=== PATIENT | female | born 1985 | race American Indian/Alaskan Native ===

== ENCOUNTER 2017-04-20 06:48 | Inpatient (IN) | payer MEDICAID ==
[~2017-04-20 06:48] MED LIST: Acetaminophen 325 MG Tab PO PRN; Acetaminophen/oxyCODONE 325-5 MG Tab PO PRN; Carboprost Tromethamine 250 MCG/1 ML Amp IM ONE; Citric Acid/Sodium Citrate Solution 30 ML Cup PO ONE; Methylergonovine 0.2 MG/1 ML Amp IM PRN; Misoprostol 400 MCG (4 X 100 MCG TAB) RECTAL PRN; Naloxone 2 MG/2 ML Syringe IVPUSH PRN; Ondansetron 4 MG/2 ML SDV IV PRN; Oxytocin/Normal Saline 60 UNIT/1,000 ML BAG ONE; ceFAZolin 2 GM in Premix Bag 1 BAG IV ONE; diphenhydrAMINE 50 MG/ML SDV IVPUSH PRN; ePHEDrine 50 MG/ML SDV IVPUSH PRN
--- NOTE | 2017-04-20 07:28 | PCM.PREANE ---
Preanesthetic Assessment - Procedure Proposed Procedure: Repeat Section - Anesthesia/Transfusion/Family Hx Anesthesia History: Prior Anesthesia Without Reaction Family History of Anesthesia Reaction: No Transfusion History: No Prior Transfusion(s) Intubation History: Unknown - Review of Systems General: No Symptoms Pulmonary: No Symptoms Cardiovascular: No Symptoms Gastrointestinal: No symptoms Neurological: No Symptoms Other: Reports: None - Physical Assessment NPO Status Date: 04/19/17 NPO Status Time: 23:00 Pulse: 88 O2 Sat by Pulse Oximetry: 99 Respiratory Rate: 18 Blood Pressure: 121/72 Temperature: 97.6 F Height: 1.55 m Weight: 90.718 kg ASA Class: 2 Mental Status: Alert & Oriented x3 Airway Class: Mallampati = 2 Dentition: Reports: Normal Dentition Thyro-Mental Finger Breadths: 3 Mouth Opening Finger Breadths: 3 ROM/Head Extension: Full Lungs: Clear to auscultation, Normal respiratory effort Cardiovascular: Regular Rate, Regular Rhythm - Lab Values: Laboratory Last Values POC Glucose 101 mg/dl (70-105) 04/20/17 07:06 - Allergies Allergies/Adverse Reactions: Allergies Allergy/AdvReac Type Severity Reaction Status Date / Time No Known Drug Allergies Allergy none Verified 04/20/17 07:05 metal Allergy Rash Uncoded 12/31/14 19:23 - Blood Blood Available: No Product(s) Available: None - Anesthesia Plan Pre-Op Medication Ordered: None - Acknowledgements Anesthesia Type Planned: Spinal Pt an Appropriate Candidate for the Planned Anesthesia: Yes Alternatives and Risks of Anesthesia Discussed w Pt/Guardian: Yes Pt/Guardian Understands and Agrees with Anesthesia Plan: Yes Additional Comments: Patient ID'd chart reviewed, R/B of spinal and general anesthesia discussed with patient. Consent is signed. Plan A is spinal anesthesia and Plan B is general anesthesia. Patient agreed. 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: , Spontaneous - Past Surgical History Female Surgical History: Reports: Section, D&C - SUBSTANCE USE Smoking Status *Q: Never Smoker Tobacco Use Within Last Twelve Months: No Second Hand Smoke Exposure: Yes Days Per Week of Alcohol Use: 2 Number of Drinks Per Day: 4 Total Drinks Per Week: 8 Recreational Drug Use History: No - HOME MEDS Home Medications: Home Meds Vit 90/Iron Fum/Folic [ Formula] 1 each PO DAILY 02/04/15 [ History] - CURRENT (IN HOUSE) MEDS Current Meds: Current Medications Acetaminophen (Tylenol) 650 mg PO Q6H PRN PRN Reason: mild pain or fever Carboprost Tromethamine (Hemabate Ds) 250 mcg IM ONETIME ONE Stop: 04/20/17 06:00 Citric Acid/Sodium Citrate (Bicitra Solution) 30 ml PO ONETIME ONE Stop: 04/20/17 06:00 Diphenhydramine HCl (Benadryl) 25 mg IVPUSH Q6H PRN PRN Reason: Itching or Nausea Docusate Sodium (Colace) 100 mg PO Q12H PRN PRN Reason: Constipation Ephedrine Sulfate (Ephedrine Sulfate) 5 mg IVPUSH SEECOMMENT PRN PRN Reason: Other Ferrous Sulfate (Ferrous Sulfate) 325 mg PO BRK DARLENE Cefazolin Sodium/Dextrose 2 gm (/ Premix) 50 mls @ 100 mls/hr IV ONETIME ONE Stop: 04/20/17 06:28 Lactated Ringer's (Ringers, Lactated) 1,000 mls @ 125 mls/hr IV ASDIRECTED [facility] Ibuprofen (Motrin) 800 mg PO Q8H PRN PRN Reason: mild pain or fever Ketorolac Tromethamine (Toradol) 15 mg IVPUSH Q6H [facility] Stop: 04/20/17 18:01 Methylergonovine Maleate (Methergine) 0.2 mg IM ONETIME PRN PRN Reason: Excessive Vaginal Bleeding Misoprostol (Cytotec) 800 mcg RECTAL ASDIRECTED PRN PRN Reason: Bleeding Naloxone HCl (Narcan) 0.1 mg IVPUSH SEECOMMENT PRN PRN Reason: Respiratory Depression Ondansetron HCl (Zofran) 4 mg IV Q4H PRN PRN Reason: Nausea/Vomiting Oxycodone/Acetaminophen (Percocet 325-5 Mg) 1 tab PO Q4H PRN PRN Reason: Pain (moderate 4-6) Oxycodone/Acetaminophen (Percocet 325-5 Mg) 2 tab PO Q4H PRN PRN Reason: Pain (moderate 4-6) Prenat Multivit/[place]/Iron/Folic Ac ( Plus Iron) 1 each PO DAILY [facility] Simethicone (Simethicone) 80 mg PO Q4H PRN PRN Reason: Gas Discontinued Medications Oxytocin/Sodium Chloride (Pitocin In Ns 30 Unit/500 Ml) Confirm Administered Dose 60 unit in 1,000 mls @ as directed .ROUTE .STK-MED ONE Stop: 04/20/17 05:49
[2017-04-20] MEDS ORDERED: Oxytocin/Normal Saline 30 UNIT/500 ML BAG IV SCH (08:50)
[2017-04-20] MEDS: Lactated Ringers 1,000 ML IV SCH ×4 (09:31→19:21)
[2017-04-20] MEDS ORDERED: Morphine 10 MG/ML Syringe IVPUSH PRN (10:10)
[2017-04-20] MEDS ORDERED: Oxytocin/Normal Saline 30 UNIT/500 ML BAG IV ONE (12:31)
--- NOTE | 2017-04-20 13:31 | HP ---
PATIENT IDENTIFICATION: María Miller is a 32-year-old G9, P6-0-2-6, intrauterine at 38 weeks, confirmed with 26 and /7th week ultrasound, gestational diabetes mellitus, poorly controlled, previous x2, requests repeat low transverse with poor care, who presents for repeat low transverse . HISTORY OF PRESENT ILLNESS: The patient has been followed during this . Diagnosed with gestational diabetes mellitus late in the because she failed to follow as instructed. She was followed for short period of time, was uncontrolled, and deferred medication. There were issues with noncompliance and patient presenting appropriately for care. Subsequently, shared decision was made and discussed with Dr. Pal to proceed with repeat low transverse at 38 weeks. The patient presents today. She states her last oral intake was at 11:00 p.m. night before surgery. She otherwise has no complaints currently. She has occasional contractions. Records were called for, reviewed as below and supplemented by patient history. OB HISTORY: 1. Spontaneous AB in 03/2016 at 8 weeks without a D and C. 2. 07/30/2015, 39 weeks, low transverse , female weighing 3640 g. 3. 03/10/2014, 40 and 1/7 weeks, delivered male, primary low transverse C- section with 2-layer uterine closure, weighing 3925 g, due to intolerance. 4. 2008, 40 weeks spontaneous vaginal delivery of female 3799 g. 5. 03/2008, 6 weeks spontaneous AB with a D and C. 6. 2006, 40 weeks, female, spontaneous vaginal delivery, weighing 4564 g. 7. 2005, 40 week, male, delivered via spontaneous vaginal delivery, weighing 3799 g. 8. 2003, 42 week, vacuum assisted vaginal delivery, yielding a male weighing 4423 g. ANTEPARTUM LABS: ABO blood type O positive, negative antibody. Rubella immune. RPR is nonreactive. Negative hepatitis B surface antigen, hep C, HIV, GC, and Chlamydia. One-hour GTT was elevated significantly at 210. GBS was negative on 04/02/2017. ALLERGIES: No known drug allergies. MEDICATIONS: vitamins. PAST MEDICAL/PAST SURGICAL HISTORY: Remarkable for history of depression, alcohol and drug abuse with overuse of drugs in the past, history of STD in the past, history of abnormal Pap smears requiring a LEEP, seizures with last one in 2008, no meds needed. She has gestational diabetes mellitus, not controlled at current time. Past surgical history includes LEEP on 03/07/2010 and previous x2 as above. FAMILY HISTORY: Depression in 3 brothers, which committed suicide, multiple births in paternal grandmother. Negative family history of defects, anesthesia problems, bleeding problems, thyroid disease, seizures. SOCIAL HISTORY: Lives in [place] with her boyfriend, not working currently, has 3 children with her. No alcohol or drug use. Former smoker. REVIEW OF SYSTEMS: Otherwise reviewed and felt to be noncontributory. OBJECTIVE: Vital Signs: Blood pressure 120/62, heart rate 69, temperature 97.5, and O2 sats 97%. Appearance: Female, appears her stated age, acting appropriate for age, nontoxic in appearance. HEENT: Head is atraumatic. EOMs intact. PERRLA. No scleral icterus. No obvious otorhinorrhea. Mucous members moist. Neck: No obvious tenderness. Lungs: Clear to auscultation bilaterally. No increased work of breathing. Heart: S1, S2. Regular rate and rhythm. Abdomen: Gravid Tyrone's indeterminate, nontender, and nondistended. Bowel sounds are positive. No organomegaly, pulsatile masses, or obvious hernias. No rebound, rigidity, or guarding with Pfannenstiel type scar noted. : Deferred. Extremities: Trace pedal edema. Deep tendon reflexes 1-2/4 in bilaterally in lower extremities. Psych: Mood and affect are congruent. Judgment and insight are intact. Skin: No cyanosis, clubbing, or jaundice. Tocometer reveals occasional contractions. heart tones in the 135 range. Davis to be reassuring. ASSESSMENT/PLAN: 1. Intrauterine at 38 weeks, confirmed with 26 and 2/7th week ultrasound. 2. Gestational diabetes mellitus - poorly controlled with issues with compliance. 3. Previous x2, requests repeat low transverse . 4. Poor care with issues with compliance. 5. Group B Streptococcus negative. 6. G9, P6-0-2-6. PLAN: I did discuss with the patient proceeding with repeat low transverse C- section. I did discuss with her and her male partner risks, benefits, alternatives, complications of including, but no limited to, infection, bleeding, damage to organs such as bowel, bladder, tubes, uterus, ovaries, sometimes fetus rarely needing a blood transfusion or further surgery, and even rarer maternal or . She understands and agrees and wishes to proceed. Verbal and written consent obtained. Questions were answered. We will proceed to the OR as soon as crew is ready and available. [facility] /[id number]
[2017-04-20] MEDS: Morphine 2 MG/ML Syringe IVPUSH PRN ×3 (14:52→23:11)
--- NOTE | 2017-04-20 15:10 | OR ---
DATE: 04/20/2017 PREOPERATIVE DIAGNOSES: 1. Intrauterine at 38 weeks, confirmed by 26-2/ weeks ultrasound. 2. Gestational diabetes mellitus - poorly controlled. 3. Previous x2, requests repeat low transverse . 4. Poor/insufficient care with noncompliance. 5. Group B Streptococcus negative. 6. G 9, P 6-0-2-6. 7. Anemia of with hemoglobin 10.1 upon admission. POSTOPERATIVE DIAGNOSES: 1. Intrauterine at 38 weeks, confirmed by 26-27th weeks ultrasound-delivered. 2. Gestational diabetes mellitus - poorly controlled. 3. Previous x2, requests repeat low transverse . 4. Poor/insufficient care with noncompliance. 5. Group B Streptococcus negative. 6. G 9, P 6-0-2-6. 7. hemorrhage with EBL of 1200 mL. 8. Difficulty delivering vertex, requiring Kiwi vacuum assistance. FINDINGS: Male, scores, and weight pending. PROCEDURE PERFORMED: Repeat low transverse with Kiwi vaccuum assistance. SCHOOL SECRETARY: Arina East MD ANESTHESIA: Spinal. EBL: 1200mL IV FLUIDS: 1500 mL. URINE OUTPUT: 150 mL and clear. START: 0814. UTERINE INCISION: 0816. DELIVERY: 0816. STOP TIME: See STEAK TENDERIZER MACHINE's notes. DESCRIPTION OF PROCEDURE IN DETAIL: After proper consent was obtained, the patient was brought to the operating room where spinal anesthetic was administered. A Canales was placed in preop under sterile conditions. Abdomen was prepped and draped in normal sterile fashion, and the patient was placed in supine position with left lateral tilt with reverse Trendelenburg per STEAK TENDERIZER MACHINE. A skin incision was then made over lower abdomen in transverse Pfannenstiel-type fashion over previous scar. This was carried down to the fascia and scored in the midline. Subcutaneous tissue was raked laterally with Herron retractor and fascial incision was extended in transverse fashion using curved Goodson's. Lisy clamps x2 used to grasp superior aspect of the fascia and rectus muscles were dissected from the fascia using sharp and blunt technique. In a similar fashion, Lisy clamps x2 were used to grasp the inferior portion of incision and rectus and pyramidalis muscles dissected from fascia using sharp and blunt technique. Rectus muscles were in the midline with blunt technique. Abdominal cavity was entered in blunt technique and incision was extended superiorly and inferiorly using blunt technique. Walker O large retractor was then introduced and used. Vesicouterine peritoneum was then identified, incised in transverse fashion using Metzenbaum scissors and bladder flap was made digitally. A curvilinear incision was made in lower uterine segment at 0816 hours. Uterus was entered sharply. Clear fluid returned. Uterine incision was then extended in transverse fashion using blunt technique. vertex was then attempted to be delivered through the incision, had some difficulty delivering through the incision. Kiwi vacuum was applied, pumped up to the green with gentle pulling and fundal pressure. vertex was delivered. Vacuum was disengaged. Rest of the delivered thereafter without difficulty. Mouth and nares were suctioned. Cord doubly clamped and cut, was brought over to team. Then, approximately 10 mL cord blood was obtained for labs. Placenta then delivered with gentle cord traction and fundal massage. Uterine cavity was cleared of all blood clots and debris with lap sponge. Breen clamps were used to grasp the uterine incision, this was closed in a running locked fashion, tied at lateral margins with 1-0 Vicryl. Left lateral portion of the incision revealed bleeding. Three [id number] stitches were applied. Hemostasis reassured. First inspection of the uterine incision revealed hemostasis. Walker O retractor was then removed and paracolic gutters were cleared of all blood clots and debris with lap sponge. Anterior cul-de-sac was then irrigated copiously and all blood clots removed. Second and final inspection of the uterine incision and anterior cul-de-sac revealed hemostasis. Rectus muscles were then reapproximated in midline with [id number]-[id number] stitch using 1-0 Vicryl. Subfascial tissue was found to be hemostatic. Fascia was closed in a running fashion, tied at lateral margin with 0 looped PDS. Subcutaneous tissue was irrigated copiously. Hemostasis was reassured. Skin was reapproximated with sterile medium daja. Aquacel dressing was applied. Uterus fundus was firm and massaged at the conclusion of the case and -2 below umbilicus. No immediate complications were noted. Sponge, lap, and needle counts correct. The patient received 2 g of Ancef preoperatively. Pitocin per protocol and will receive Toradol at the conclusion of case for pain control. Mother and infant are currently stable at the time of my dictation. Infant did require some resuscitation. Please see baby's notes for further details. [facility] /[id number] MTDD
--- NOTE | 2017-04-20 15:27 | PCM.POSTAN ---
POST ANESTHESIA ASSESSMENT - MENTAL STATUS Mental Status: alert, oriented - VITAL SIGNS Pulse Rate: 80 SaO2: 100 Resp Rate: 19 Blood Pressure: 128/62 Temperature: 97.1 F - RESPIRATORY Respiratory Status: respiratory rate WNL, airway patent, O2 saturation stable - CARDIOVASCULAR CV Status: pulse rate WNL, blood pressure stable - GASTROINTESTINAL GI Status: no symptoms - POST OP HYDRATION Hydration Status: adequate & stable (Sitting in bed tolerated procedure well. Trying to eat. Regained full function of her lower extremities. Did not ambulate yet. Epigastric pain is well controlled with morphine PRN. )
[2017-04-20] MEDS ORDERED: Morphine PF 5 MG/10 ML SDV ONE (16:08)
[2017-04-20] MEDS ORDERED: Midazolam 1 MG/ML 2 ML SDV IV ONE (16:08)
[2017-04-20] MEDS ORDERED: ePHEDrine 50 MG/ML SDV IV ONE (16:08)
[2017-04-20] MEDS ORDERED: fentaNYL 100 MCG/2 ML SDV ONE (16:08)
[2017-04-20] MEDS ORDERED: Ondansetron 4 MG/2 ML SDV IV ONE (16:08)
[2017-04-20] MEDS: Prenatal Multivitamin with Calcium/Folic Acid/Iron Tab PO SCH (17:20)
[2017-04-20] MEDS: Ferrous Sulfate 325 MG Tab PO SCH (17:35)
[2017-04-20] MEDS: Ketorolac 30 MG/ML SDV IVPUSH SCH ×2 (18:20→18:21)
[2017-04-20] MEDS: Simethicone 80 MG Tab.Chew PO PRN (23:12)
[2017-04-21] MEDS: Morphine 2 MG/ML Syringe IVPUSH PRN (03:01)
[2017-04-21] MEDS: Lactated Ringers 1,000 ML IV SCH (03:12)
[2017-04-21] MEDS: Acetaminophen/oxyCODONE 325-5 MG Tab PO PRN ×5 (06:37→23:28)
[2017-04-21] MEDS: Ibuprofen 800 MG Tab PO PRN ×2 (09:29→19:36)
[2017-04-21] MEDS: Simethicone 80 MG Tab.Chew PO PRN ×2 (09:30→19:36)
[2017-04-21] MEDS: Docusate Sodium 100 MG Cap PO PRN ×2 (09:30→19:36)
[2017-04-21] MEDS: Prenatal Multivitamin with Calcium/Folic Acid/Iron Tab PO SCH (09:30)
[2017-04-21] MEDS: Ferrous Sulfate 325 MG Tab PO SCH (09:30)
--- NOTE | 2017-04-21 11:46 | PN ---
DATE: 04/21/2017 Postoperative day #1. SUBJECTIVE: The patient is tolerating POs, has ambulated. Canales is in place. Passing flatus. She updated me in regard to her baby who sounds to be intubated, had surfactant, and required fentanyl as well as sugars through the IV to bring sugars back up. OBJECTIVE: Vital Signs: Last set of vitals updated and listed in the chart; temperature 98, heart rate 75, blood pressure 108/62, and respiratory rate 16. I's and O's are adequate. Lungs: Clear to auscultation bilaterally. Heart: S1 and S2. Regular rate and rhythm. Abdomen: Firm uterus at -1 below umbilicus. Aquacel dressing appears dry and intact. Extremities: SCD hoses are on. No calf pain. LABORATORY DATA: Pending is a CBC. ASSESSMENT AND PLAN: 1. Postoperative day #1, status post repeat low transverse section complicated by hemorrhage with estimated blood loss of 1200 mL. CBC is pending. The patient is currently asymptomatic. Vital signs are stable. I's and O's have been adequate. We will follow closely. Her predelivery hemoglobin was 10.1. 2. History of gestational diabetes mellitus, poorly controlled and issues with compliance. The patient appears to be stable in regard to this. We will follow clinically and closely. Possible discharge tomorrow. Discussed with the patient so that she can be with her baby if she does well today. She understands and agrees with the above treatment plan. [facility] /[id number]
--- NOTE | 2017-04-21 13:48 | OBOUT ---
DATE: 04/20/2017 DATE AND TIME OF NST: Date: 04/20/2017. Time: 6:54 to 7:14. REASON FOR NST: 1. Intrauterine at 38 weeks, confirmed with 26 -2/7th-week ultrasound. 2. Gestational diabetes mellitus, poorly controlled. 3. Previous x2, requests for repeat low transverse . 4. Poor care with issues with noncompliance. 5. Group B Streptococcus negative. 6. G9, P6-0-2-6. NST INTERPRETATION: During this time period, heart tone baseline is approximately around 135 range, and there are at least two 15 x 15 beat per minute accelerations, making this strip reactive. It is also noted to be reassuring. Tocometer reveals potential of 3 contractions, minimally felt by patient. ASSESSMENT: 1. NST-reactive and reassuring. 2. Tocometer with contractions. PLAN: Please see H and P for further details. [facility] /[id number]
[2017-04-22] MEDS: Ibuprofen 800 MG Tab PO PRN (03:29)
[2017-04-22] MEDS: Simethicone 80 MG Tab.Chew PO PRN (03:33)
[2017-04-22] MEDS: Acetaminophen/oxyCODONE 325-5 MG Tab PO PRN ×2 (03:33→08:11)
[2017-04-22] MEDS: Prenatal Multivitamin with Calcium/Folic Acid/Iron Tab PO SCH (08:11)
[2017-04-22] MEDS: Docusate Sodium 100 MG Cap PO PRN (08:11)
[2017-04-22] MEDS: Ferrous Sulfate 325 MG Tab PO SCH (08:11)
[2017-04-22 11:44] VITALS: BP 108/55
--- NOTE | 2017-04-22 12:54 | DISCH ---
ADMIT DIAGNOSES: 1. Intrauterine at 38 weeks, confirmed by 26-2/7th weeks ultrasound. 2. Gestational diabetes mellitus-poorly controlled. 3. Noncompliance. 4. Previous x2, requests repeat low transverse . 5. Poor care. 6. Group B Streptococcus negative. 7. G9, P6-0-2-6. 8. Anemia of with hemoglobin 10.1 upon admission. DISCHARGE DIAGNOSES: 1. Intrauterine at 38 weeks, confirmed by 26-2/7th weeks ultrasound- delivered. 2. Gestational diabetes mellitus-poorly controlled. 3. Noncompliance. 4. Previous x2, requests repeat low transverse . 5. Poor care. 6. Group B Streptococcus negative. 7. G9, P6-0-2-6. 8. Anemia of with hemoglobin 10.1 upon admission. 9. hemorrhage with an EBL of 1200 mL. 10.Difficulty delivering vertex, requiring kiwi vacuum assistance. PROCEDURE PERFORMED: NST followed by repeat low transverse with kiwi vacuum assistance per Dr. Benz. HISTORY OF PRESENT ILLNESS: Please see HPI. SUMMARY OF HOSPITAL COURSE: The patient was admitted on the above date with the above diagnoses, underwent a repeat low transverse under spinal, yielding a male with scores of 5, 4, and 9. Weighing 7 pounds 5 ounces (3310 g). had apnea, bradycardia, hypoxia, hypoglycemia and required transfer to the NICU. Postoperative day #1, please see progress note. Postoperative day #2, date of discharge, the patient was tolerating p.o., ambulating, urinating, passing flatus, requesting discharge. PHYSICAL EXAMINATION: Vital Signs: Last set of vitals updated and listed in the chart. Temperature 97.2, heart rate 70, blood pressure 103/50, respiratory rate 16. Lungs: Clear to auscultation bilaterally. Heart: S1 and S2. Regular rate and rhythm. Abdomen: Firm uterus around the umbilicus. Aquacel dressing appears dry and intact. JORDON hose are on. LABORATORY DATA: Discharge labs reveal white cell count 11.2, hemoglobin 9.2, platelets 307,000. CONDITION ON DISCHARGE COMPARED TO CONDITION ON ADMISSION: Improved. DISCHARGE INSTRUCTIONS: 1. Diet as tolerated. 2. Activity, no lifting more than 20 pounds. No sit-ups, straining amd pelvic rest for the next 6 weeks with immediate return to fertility discussed with the patient. 3. Reasons to return or go to the emergency room were discussed with the patient in detail including, but not limited to, temperature greater than 100.4, foul-smelling discharge, red, hot tender breasts, or increased vaginal bleeding or increasing pain, drainage, or redness around the incision. DISCHARGE MEDICATIONS: 1. [id number] Tylenol and ibuprofen for pain. 2. Iron sulfate 325 b.i.d. x6 weeks. 3. Percocet 5/325, one to two q.6 hours p.r.n., #30, no refills. Discussed the use of this medications, adverse and wanted effects, as well precautions with driving. FOLLOW UP: Next week on Thursday with the resident or Dr. Pal for staple removal. I did discuss the importance of followup and ramifications of not doing so. The patient understands and agrees with the above treatment plan. Please see discharge paperwork for further details as well. [facility] /[id number]
== END 2017-04-22 09:00 | disposition home or self-care (01) | DRG 765 ==
LOC: DL.OB 06:48 → OBSVTOIN 08:16 → DL.MS 23:50
PROVIDERS: ADMIT Family Medicine; ATTEND Family Medicine
PROC: 10D00Z1 Extraction of Products of Conception, Low, Open Approach (ICD-10-PCS; principal; 2017-04-20)
DX: O34.211 Maternal care for low transverse scar from previous cesarean delivery (principal); O72.1 Other immediate postpartum hemorrhage; O24.429 Gestational diabetes mellitus in childbirth, unspecified control; O99.02 Anemia complicating childbirth; D64.9 Anemia, unspecified; Z37.0 Single live birth; Z3A.38 38 weeks gestation of pregnancy; Z86.59 Personal history of other mental and behavioral disorders
CPT/HCPCS: 36415; 80305; 82962; 85027; 86850; 86900; 86901; 94010; A9270-GY; J0690; J2250; J2270; J2274; J2405; J2590; J3010; J7120

== ENCOUNTER 2017-06-06 19:18 | Emergency (ER) | payer MEDICAID ==
[2017-06-06 19:41] VITALS: BP 119/73
--- NOTE | 2017-06-06 20:23 | EDM.PDOC ---
ED HPI GENERAL MEDICAL PROBLEM - General Chief Complaint: ENT Problem Stated Complaint: TOOTH ACHE Time Seen by Provider: 06/06/17 20:15 Source of Information: Reports: Patient History Limitations: Reports: No Limitations - History of Present Illness INITIAL COMMENTS - FREE TEXT/NARRATIVE: Increasing right front dental and gum pain, worsening through out the day. Started in gum few days ago after eating chicken and scratched the back of front tooth and gum. No fever. Has been alternating tylenol and ibuprofen with ambesol. Started amoxicillin 2 doses left over from old Rx. Right Upper Gums Pain Score (Numeric/FACES): 10 - Related Data Allergies Allergy/AdvReac Type Severity Reaction Status Date / Time No Known Drug Allergies Allergy none Verified 04/20/17 07:05 metal Allergy Rash Uncoded 06/06/17 19:41 Home Meds: Home Meds . 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: , Spontaneous Endocrine/Metabolic History: Reports: Diabetes, Gestational Hematologic History: Reports: Anemia - Past Surgical History Female Surgical History: Reports: Section, D&C Social & Family History - Family History Family Medical History: Unobtainable - Tobacco Use Smoking Status *Q: Current Some Day Smoker Years of Tobacco use: 10 Packs/Tins Daily: 0.1 Used Tobacco, but Quit: No Second Hand Smoke Exposure: Yes - Caffeine Use Caffeine Use: Reports: None - Alcohol Use Days Per Week of Alcohol Use: 2 Number of Drinks Per Day: 4 Total Drinks Per Week: 8 - Recreational Drug Use Recreational Drug Use: No - Living Situation & Occupation Living situation: Reports: with Family Occupation: Employed ED ROS ENT - Review of Systems Review Of Systems: ROS reveals no pertinent complaints other than HPI. ED EXAM, ENT - Physical Exam Exam: See Below Exam Limited By: No Limitations General Appearance: Alert, Moderate Distress Eye Exam: Bilateral Eye: EOMI Ears: Normal External Exam Nose: Normal Inspection Mouth/Throat: Dental Abcess, Dental Pain (front right upper tooth with gum tissue swelling tender upper gum and pain below nose. ), Dental Tenderness, Lip Swelling (mild upper). No: Tongue Swelling Head: Atraumatic, Normocephalic, Scalp Lacerations Respiratory/Chest: No Respiratory Distress, Lungs Clear, Normal Breath Sounds Cardiovascular: Normal Peripheral Pulses, Regular Rate, Rhythm Neurological: Alert, Oriented Psychiatric: Tearful Skin: Warm, Normal Color Course - Vital Signs Last Recorded V/S: Last Vital Signs Temp 97.6 F 06/06/17 19:36 Pulse 96 06/06/17 19:36 Resp 18 06/06/17 19:36 BP 119/73 06/06/17 19:36 Pulse Ox 100 06/06/17 19:36 Departure - Departure Time of Disposition: 20:27 Disposition: Home, Self-Care 01 Condition: Good Clinical Impression: Pain due to dental caries - Discharge Information Instructions: Dental Abscess, [id number] Forms: ED Department Discharge Additional Instructions: Keflex 500mg 4 times daily for 5 days oxycodone 5/325 one every 6 hours as needed #2 viscous lidocaine apply with q tip to affected area 3 times daily as needed Follow up with dentist thursday room temperature liquids alternate tylenol 650mg and ibuprofen 600mg every 4 hours as needed for pain
[2017-06-06] MEDS ORDERED: Cephalexin 500 MG Cap ONE (20:30)
[2017-06-06] MEDS ORDERED: Cephalexin 500 MG Cap PO ONE (20:31)
[2017-06-06] MEDS ORDERED: Acetaminophen/oxyCODONE 325-5 MG Tab ONE (20:31)
[2017-06-06] MEDS ORDERED: Acetaminophen/oxyCODONE 325-5 MG Tab PO ONE (20:31)
[2017-06-06] MEDS ORDERED: Lidocaine 2% Viscous Solution 15 ML Cup ONE (20:31)
[2017-06-06] MEDS ORDERED: Lidocaine 2% Viscous Solution 15 ML Cup PO ONE (20:31)
== END 2017-06-06 20:36 | disposition home or self-care (01) ==
LOC: DL.ED 19:18
DX: K02.9 Dental caries, unspecified (principal); F17.210 Nicotine dependence, cigarettes, uncomplicated; Z91.09 Other allergy status, other than to drugs and biological substances; Z98.890 Other specified postprocedural states
CPT/HCPCS: 99282; A9270

== ENCOUNTER 2017-08-14 09:21 | Emergency (ER) | payer MEDICAID ==
[2017-08-14 09:28] VITALS: BP 119/74
--- NOTE | 2017-08-14 09:45 | EDM.PDOC ---
ED HPI GENERAL MEDICAL PROBLEM - General Chief Complaint: General Stated Complaint: HEAD INJURY Time Seen by Provider: 08/14/17 09:40 Source of Information: Reports: Patient History Limitations: Reports: No Limitations - History of Present Illness INITIAL COMMENTS - FREE TEXT/NARRATIVE: 32 yo Eek Female c/o fall onto step one hour ago hitting left side of head w/ o LOC Onset: Today Onset Date: 08/14/17 Onset Time: 08:40 Duration: Hour(s): Location: Reports: Head Quality: Reports: Ache Severity: Moderate Improves with: Reports: None Worsens with: Reports: None Context: Reports: Trauma Associated Symptoms: Reports: No Other Symptoms Left Parietal Head Pain Score (Numeric/FACES): 6 - Related Data Allergies Allergy/AdvReac Type Severity Reaction Status Date / Time No Known Drug Allergies Allergy none Verified 08/14/17 09:27 metal Allergy Rash Uncoded 06/06/17 19:41 Home Meds: Home Meds . [No Known Home Meds] 06/06/17 [History] Past Medical History - Past Health History Medical/Surgical History: Denies Medical/Surgical History HEENT History: Reports: Impaired Vision PROCESS TRAINER History: Reports: , Spontaneous Endocrine/Metabolic History: Reports: Diabetes, Gestational Hematologic History: Reports: Anemia - Past Surgical History Female Surgical History: Reports: Section, D&C Social & Family History - Family History Family Medical History: Unobtainable - Tobacco Use Smoking Status *Q: Current Some Day Smoker Years of Tobacco use: 10 Packs/Tins Daily: 0.1 Used Tobacco, but Quit: No Second Hand Smoke Exposure: Yes - Caffeine Use Caffeine Use: Reports: None - Alcohol Use Days Per Week of Alcohol Use: 2 Number of Drinks Per Day: 4 Total Drinks Per Week: 8 - Recreational Drug Use Recreational Drug Use: No - Living Situation & Occupation Living situation: Reports: with Family Occupation: Employed ED ROS GENERAL - Review of Systems Review Of Systems: See Below Constitutional: Reports: No Symptoms HEENT: Reports: Other (left side scalp lac) Respiratory: Reports: No Symptoms Cardiovascular: Reports: No Symptoms Endocrine: Reports: No Symptoms GI/Abdominal: Reports: No Symptoms : Reports: No Symptoms Musculoskeletal: Reports: No Symptoms Skin: Reports: Wound (left side scalp) Neurological: Reports: No Symptoms Psychiatric: Reports: No Symptoms Hematologic/Lymphatic: Reports: No Symptoms Immunologic: Reports: No Symptoms ED EXAM, HEAD INJURY - Physical Exam Exam: See Below Exam Limited By: No Limitations General Appearance: Alert, No Apparent Distress Head: Scalp Lacerations (left posterior area) Eyes: Bilateral Eye: EOMI, PERRL Ears: Normal External Exam Nose: Normal Inspection Throat/Mouth: Normal Inspection, Normal Lips Neck: Non-Tender, Full Range of Motion Respiratory: No Respiratory Distress, Lungs Clear Cardiovascular: Normal Peripheral Pulses, Regular Rate, Rhythm GI/Abdominal Exam: Normal Bowel Sounds, Soft Back Exam: Normal Inspection Extremities: Normal Inspection, Normal Range of Motion Neurologic: cafeteria attendant II-XII nml As Tested, No Motor/Sensory Deficits, Alert, Normal Mood/Affect DTR: 2+: Tricep (R), Tricep (L) Skin: Normal Color, Other (left posterior scalp area w/ full thickness lac w/o active bleeding) - Silva Coma Score Best Eye Response (Rogers): (4) Open Spontaneously Best Verbal Response (Silva): (5) Oriented Best Motor Response (Rogers): (6) Obeys Commands ED LACERATION/WOUND & KOJO PROC - Laceration/Wound Repair Left Mid-Posterior Lateral Head Lac/wound length in cm: 1.5 Appearance: Linear Distal NVT: Neuro & Vascular Intact, No Tendon Injury Anesthetic Type: Other (none) Skin Prep: Chlorhexidine (Hibiciens) Exploration/Debridement/Repair: In a Bloodless Field Closed with: Dermabond Drain Placement: No Sterile Dressing Applied: Nurse Tetanus Status Addressed: Yes Complications: No Course - Vital Signs Last Recorded V/S: Last Vital Signs Temp 35.9 C 08/14/17 09:27 Pulse 115 H 08/14/17 09:27 Resp 16 08/14/17 09:27 BP 119/74 08/14/17 09:27 Pulse Ox 16 L 08/14/17 09:27 - Orders/Labs/Meds Orders: Active Orders 24 hr Category Date Time Status Skull Comp Min 4V [CR] Urgent Exams 08/14/17 09:41 Taken Labs: Laboratory Tests 08/14/17 Range/Units 09:38 Urine HCG, Qual Positive Departure - Departure Time of Disposition: 10:23 Disposition: Home, Self-Care 01 Condition: Good Clinical Impression: Fall (on) (from) other stairs and steps, initial encounter, Early stage of Scalp laceration Qualifiers: Encounter type: initial encounter Qualified Code(s): S01.01XA - Laceration without foreign body of scalp, initial encounter - Discharge Information Instructions: Head Injury, Adult, [id number] Forms: ED Department Discharge Additional Instructions: Keep scalp area clean and dry Apply TRIPLE ANTIBIOTIC OINTMENT BID(otc) BECAUSE YOU ARE - PLEASE DO NOT TAKE ANY MEDICATION UNTIL SEEN BY YOUR DOCTOR PLEASE CALL FOR APPT. LISA - My Orders Last 24 Hours: My Active Orders 08/14/17 09:41 Skull Comp Min 4V [CR] Urgent - Assessment/Plan Last 24 Hours: My Active Orders 08/14/17 09:41 Skull Comp Min 4V [CR] Urgent
== END 2017-08-14 10:29 | disposition home or self-care (01) ==
LOC: DL.ED 09:21
DX: S01.01XA Laceration without foreign body of scalp, initial encounter (principal); Z91.048 Other nonmedicinal substance allergy status; F17.210 Nicotine dependence, cigarettes, uncomplicated; W10.9XXA Fall (on) (from) unspecified stairs and steps, initial encounter
CPT/HCPCS: 12001; 70260; 81025; 99283

== ENCOUNTER 2018-03-20 19:57 | Observation (INO) | payer MEDICAID ==
[2018-03-20] MEDS ORDERED: Lactated Ringers 500 ML IV ONE (21:19)
[2018-03-20] MEDS ORDERED: Terbutaline 1 MG/ML SDV SUBCUT ONE (21:19)
[2018-03-20] MEDS ORDERED: Sodium Chloride 0.9% 10 ML Syringe FLUSH PRN (21:19)
[2018-03-20] MEDS: Lactated Ringers 1,000 ML IV ONE ×2 (21:35→23:22)
[2018-03-20] MEDS ORDERED: Lactated Ringers 500 ML IV SCH (21:35)
[2018-03-20] MEDS: Terbutaline 1 MG/ML SDV SUBCUT PRN ×2 (21:54→22:32)
[2018-03-20] MEDS ORDERED: hydrOXYzine HCl 25 MG Tab PO PRN (23:19)
[2018-03-21] MEDS: Lactated Ringers 1,000 ML IV ONE (06:31)
[2018-03-21 10:07] VITALS: BP 115/68
[2018-03-21] MEDS ORDERED: Lactated Ringers 1,000 ML IV SCH (10:45)
== END 2018-03-21 10:00 | disposition home or self-care (01) ==
LOC: DL.OBCHECK 19:57 → DL.OB 23:34
PROVIDERS: ADMIT Obstetrics & Gynecology; ATTEND Obstetrics & Gynecology
DX: O99.89 Other specified diseases and conditions complicating pregnancy, childbirth and the puerperium (principal); N89.8 Other specified noninflammatory disorders of vagina; O09.43 Supervision of pregnancy with grand multiparity, third trimester; Z3A.37 37 weeks gestation of pregnancy
CPT/HCPCS: 80305; 81001; 84112; 87086; A9270-GY; J3105; J7120

== ENCOUNTER 2018-03-29 19:10 | Inpatient (IN) | payer MEDICAID ==
[2018-03-29] MEDS: Lactated Ringers 1,000 ML IV SCH ×2 (19:30→20:00)
[2018-03-29] MEDS ORDERED: Oxytocin/Normal Saline 60 UNIT/1,000 ML BAG ONE (19:51)
[2018-03-29] MEDS ORDERED: Tranexamic Acid 1,000 MG in Sodium Chloride 0.9% 100 ML IV PRN (19:56)
[2018-03-29] MEDS ORDERED: Citric Acid/Sodium Citrate Solution 30 ML Cup PO ONE (19:56)
[2018-03-29] MEDS ORDERED: Methylergonovine 0.2 MG Tab PO PRN (19:56)
[2018-03-29] MEDS ORDERED: Ondansetron 4 MG Tab.DIS PO PRN (19:56)
[2018-03-29] MEDS ORDERED: Sodium Chloride 0.9% 10 ML Syringe FLUSH PRN (19:56)
[2018-03-29] MEDS ORDERED: Lactated Ringers 1,000 ML IV SCH (20:00)
[2018-03-29] MEDS ORDERED: Citric Acid/Sodium Citrate Solution 30 ML Cup ONE (20:09)
[2018-03-29] MEDS: ceFAZolin 2 GM in Premix Bag 1 BAG IV ONE (20:30)
[2018-03-29] MEDS ORDERED: Oxytocin/Normal Saline 30 UNIT/500 ML BAG IV SCH (22:05)
--- NOTE | 2018-03-29 23:11 | HP ---
CHIEF COMPLAINT: Spontaneous rupture of membranes with increasing contractions HISTORY OF PRESENT ILLNESS: A 33-year-old, 10, para 7-0-2-7, currently at 39 weeks 1 days gestation based on last menstrual period, presents to Labor and Delivery reporting a large gush of fluid at approximately 1845 hours this evening. She started to have contractions every 5 minutes apart and increasing in severity. The patient reported when the fluids ruptured, she was noticing mucus and bloody show with some dime-size clots lost with the mucus. The patient has a history of gestational diabetes, history of macrosomic infants, 2 miscarriages, and uterine atony requiring Methergine. No headaches. No change in vision. movement has been decreasing for the last week. LABS: Blood type O+, Antibody screen negative, Rubella Immune, Syphillis nonreactive, Hep B surface negative, HIV negative, GC/Chlamydia negative, Hep C nonreactive, wet prep negative, GTT 114 on 01/13/18, GBS negative. Hgb 9.9 , Plt 315. Urine tests negative for glucose. HISTORY: The patient started care at [address] Foster Benz. SERGIO 04/04/18 by LMP, consented to repeat LTCS. The patient had placenta previa which resolved this , normal anatomy. Dr. Benz provided care for the eight prior pregnancies. 1. Viable male infant, delivered in 2003, at 42 weeks gestation. 4423g, AROM, Vaginal with vacuum assist. Delivered in [place]. The patient does not remember the name of physician who delivered. 2. Viable male , born in 2005, at 42 weeks gestation. 3799 g, AROM, 3. Viable female infant in 2006, at 40 weeks gestation. 4564 g, AROM, 4. Miscarriage in 2008. Dilation and Curettage 5. Viable female infant in 2008. 3799 g, AROM, 6. Male 03/10/2014 via primary low transverse section at 40w1d gestation for non- reassuring status and maternal fever approaching prolonged rupture of membranes, meconium, amniotic fluid. with atony of the uterus treated with Methergine. 3640 g 7. Female in 07/30/2015, repeat low transverse section at 39w0d gestation. 3640 g Declined Trial of Labor. 8. Miscarriage in March 2016. No DnC, Serial Beta-hCG followed to zero. 9. Male born in 04/04/2017 via rLTCS. complicated by gestational diabetes, managed by diet. PAST MEDICAL HISTORY: 1. Gestational diabetes. 2. History of miscarriage. 3. Obesity. PAST SURGICAL HISTORY: Three prior low transverse sections. FAMILY HISTORY: Father with no known diseases. Mother with no known diseases. 3 brothers who have committed suicide. Father's side of the family, not known to the patient. Maternal grandmother alive, survived unknown type cancer. Maternal grandfather due to tuberculosis. Family history is negative for bleeding disorders, anemia, seizures, or thyroid disorders. SOCIAL HISTORY: The patient lives with her significant other, Johnny Perkins. This is their 4th child together. This will be mother's 5th child in the house. All of her other children are living with other relatives. Johnny works maintenance at a [employer] in [facility]. 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 There is no secondhand smoke in the house. She denies drug use and alcohol use. CURRENT MEDICATIONS: 1. vitamins. 2. Iron twice a day with vitamin C. exposure medications: 1. Tamiflu in January 2018. ALLERGIES: Metal - specifically metal in jewelry. The patient states she is able to have daja after her C- sections. REVIEW OF SYSTEMS: No headaches, no blurry vision, chest pain, shortness of breath, fever, chills, nausea, vomiting, diarrhea, or constipation. She has had mild swelling in hands and feet. No rash. OBJECTIVE: Vital Signs: Temp 96.7 F, BP 123/51, Pulse 104, Respirations 16. Height 5 feet 1 inch, weight 240 pounds. HEENT: Mucosal membranes are moist. Pupils PERRLA. Head is normocephalic and atraumatic. Neck: Supple. Heart: Regular rate and rhythm without murmur. Lungs: Clear to auscultation bilaterally. Abdomen: Gravid, nontender. Baseline heart rate of 130 beats per minute, moderate [id number]-[id number] variability, accelerations noted. Contractions noted to be every 5 minutes to every 2 minute apart. Cervix; the patient's cervix is 2 cm dilated, 50% effaced, Grossly ruptured membranes. Light meconium stained fluid. LABORATORY DATA: Hbg 9.8, Plt 329 ASSESSMENT: 1. A 33-year-old, 10, para 7-0-2-7, at 39 weeks 1 days gestation. 2. Spontaneous rupture of membranes in the patient with 3 prior sections. 3. Obesity. 4. History of gestational diabetes prior , diet controlled. 5. History of uterine atony, requiring Methergine. 6. Anemia of , treated with iron twice a day. 7. History of macrosomic infants. PLAN: At this time, mother is being prepped for a repeat low transverse section. Mother had discussed risks and benefits of section in prior appointment with Dr. Foster Benz, and today with Dr. Rodríguez. The patient's questions have been answered. Due to patient's large meal before presenting to the hospital, she will have a spinal anesthesia administered. MOD /[id number] Patient seen and examined. Agree with note as scribed on my behalf by Nancy Antunez , MS3, edits made as needed. -check processor 03/30/18 0658. MTDD
--- NOTE | 2018-03-29 23:26 | OR ---
DATE: 03/29/2018 PROCEDURE PERFORMED: Repeat low transverse section with vacuum assistance. PREPROCEDURE DIAGNOSES: 1. A 39 and 1/7 weeks' intrauterine . 2. 10, para 7-0-2-7. 3. Obesity. 4. History of section x3. 5. Grand multiparous. 6. Anemia of . 7. Spontaneous rupture of membranes with meconium-stained fluid. 8. History of gestational diabetes in prior . 9. History of delivery of macrosomic . 10.History of LEEP. POSTPROCEDURE DIAGNOSES: 1. A 39 and 1/7 weeks' intrauterine . 2. 10, para 8-0-2-8. 3. Obesity. 4. History of section x4. 5. Grand multiparous. 6. Anemia of . 7. Spontaneous rupture of membranes with meconium-stained fluid. 8. History of gestational diabetes in prior . 9. History of delivery of macrosomic . 10.History of LEEP. 11.Delivery of large for gestational age female . 12.Hypoproteinemia. 13.Scar tissue of uterine to peritoneal layers. BRIEF HISTORY: A 33-year-old patient admitted to the hospital after experiencing spontaneous rupture of membranes with light meconium stained fluid followed by regular contractions and found to be 2 cm dilated on initial exam. The preparations were made to expedite delivery via section and she was taken to the operating room as soon as things could be arranged. CONSENT: Discussed the indications, risks, benefits, and alternatives of repeat low transverse section including risk for infection and plan for preoperative antibiotics, risk for bleeding to the point of requiring a blood transfusion as well as its inherent risks such as transfusion reaction, or contraction of blood borne diseases or illnesses. Discussed risk of injury to any internal organs or adjacent structures including but not limited to, intestines, bladder, fallopian tubes, ovaries, uterus, other adjacent structures, large blood vessels, nerves, veins, and potential injury to the baby, potential for complications for mother and/or the baby that would require transfer to a higher level of care and even potential risk of . Mother's questions were answered and she had agreed to proceed. Appropriate consent forms were signed and can be found in the chart. SURGEON: Alyssa Farah MD. CLAIMS COORDINATOR: Jada Page MD. SECOND UNIT RECEPTIONIST: Nancy Tulio, MS-III. PROCEDURE PERFORMED: Repeat low transverse section with vacuum assistance. PROCEDURE IN DETAIL: The patient was brought to the operating room and spinal anesthesia obtained. She was laid in the dorsal supine position with leftward tilt and Canales indwelling catheter placed. Abdomen was taped up to elevate the pannus and then abdomen prepped and draped in the normal sterile fashion. A Pfannenstiel skin incision was made through the prior scar and carried down to the underlying fascia using cautery and blunt dissection. Large subcutaneous blood vessel on the maternal left side was cauterized. Fascia incised in the midline with cautery and extended bilaterally using cautery dissection. Superior fascial edge was grasped and tented up with Lisy's and rectus muscle was dissected off with cautery and traction. Inferior fascial edge grasped tented up with Lisy's and omental tissue was noted to be adherent to the fascia. Other aspects of the rectus muscles were dissected off with traction and cautery. Peritoneal layer was then dissected through with blunt finger dissection and uterus inspected. There were adhesions from the peritoneal lining of the abdomen to the anterior uterine wall more so on the maternal left side making the use of an Walker O retractor inappropriate. With adequate visualization of the uterus using bladder blade and right angle retractor, appropriate location for hysterotomy site was selected and performed with scalpel. Dissection thereafter performed with the Marks method. Amniotic fluid sac was intact and light meconium-stained fluid was present. Vacuum assistance was called for and as soon as that was ready the amniotic fluid sac was ruptured and the vacuum applied and 's head delivered up through the hysterotomy site. By using traction and fundal pressure, the remainder of the was delivered thereafter. Infant's mouth and nose were bulb suctioned and 3-vessel umbilical cord was doubly clamped and cut. Baby taken over to the warmer for further evaluation. Cord blood sample was obtained. Placenta then delivered by gentle cord traction and concomitant uterine massage. Despite this, there was some avulsion of the umbilical cord and the placenta was noted to be intact and quite large and thick. Uterus was cleared of any clots, debris, and trailing membranes using ring forceps and a dry lap sponges. Hysterotomy site was closed with a running lock stitch of 0 Vicryl in the usual fashion. This repair was hemostatic. The pericolic gutters could not be well visualized because of the adhesions. We checked the muscle and fascial layers for any bleeders, which there were none. This layer was irrigated and the peritoneal layer closed with 2 [id number] fairly loose sutures. The fascia was then closed with a running stitch of 0 looped PDS in the usual fashion. Subcutaneous tissues then irrigated and cleared of any debris. Subcutaneous bleeders were controlled with cautery and skin was closed with daja. The patient tolerated the procedure well and normal dressing was applied. COMPLICATIONS: None. ESTIMATED BLOOD LOSS: 600 mL. URINE OUTPUT: 200 mL of dark brown urine. FLUIDS: 900 mL of crystalloid, 300 mL with Pitocin. FINDINGS: Viable large for gestational age female infant, Apgars 9 and 9, weight 4615 g, 10 pounds 3 ounces. Length 20 inches. Chest 15-1/4 inches. Head 14-1/4 inches. DISPOSITION: Baby was taken to the nursery. Mother will be taken to the PACU for recovery and then down to her room. Of note, LFTs were performed because of the very dark urine and returned within normal limits. Because the baby size, mother's glucose on admission, blood was checked and was 88. [facility] /[id number] SARA
[2018-03-30] MEDS: Lactated Ringers 1,000 ML IV SCH ×3 (00:15→11:55)
[2018-03-30] MEDS ORDERED: Promethazine 25 MG/ML SDV IM PRN (01:09)
[2018-03-30] MEDS ORDERED: Naloxone 2 MG/2 ML Syringe IVPUSH PRN ×2 (01:24→06:14)
[2018-03-30] MEDS: Ketorolac 30 MG/ML SDV IVPUSH SCH ×3 (02:53→14:55)
[2018-03-30] MEDS ORDERED: Ondansetron 4 MG/2 ML SDV IV PRN (06:14)
[2018-03-30] MEDS ORDERED: diphenhydrAMINE 50 MG/ML SDV IVPUSH PRN (06:14)
[2018-03-30] MEDS ORDERED: Acetaminophen 325 MG Tab PO PRN (06:14)
[2018-03-30] MEDS ORDERED: Ibuprofen 800 MG Tab PO PRN (06:14)
[2018-03-30] MEDS: ceFAZolin 2 GM in Premix Bag 1 BAG IV ONE (08:30)
[2018-03-30] MEDS: Docusate Sodium 100 MG Cap PO PRN ×2 (08:46→20:46)
[2018-03-30] MEDS: Simethicone 80 MG Tab.Chew PO SCH ×4 (08:46→20:46)
[2018-03-30] MEDS: Ferrous Sulfate 325 MG Tab PO SCH ×2 (08:46→17:56)
[2018-03-30] MEDS ORDERED: Simethicone 80 MG Tab.Chew PO SCH (09:00)
[2018-03-30] MEDS: Acetaminophen/oxyCODONE 325-5 MG Tab PO PRN ×3 (10:47→20:46)
--- NOTE | 2018-03-30 11:45 | PN ---
DATE: 03/30/2018 SUBJECTIVE: Day #1 postop for repeat low transverse section. Mother states she is feeling well, has not ambulated in the room. Canales catheter still in place. Denies headache, nausea, vision changes, or right upper quadrant pain. Occasional nausea occurring immediately after surgery. No nausea at this moment. No shortness of breath. No cough. OBJECTIVE: VITAL SIGNS: Blood pressure 112/58, pulse 73, SpO2 of 98, temperature 97.8, and respiratory rate 16 on room air. HEENT: Head is normocephalic and atraumatic. Mucosal membranes are moist. LUNGS: Clear to auscultation bilaterally with good chest expansion. HEART: Regular without murmur. S1 and S2. ABDOMEN: Soft with uterus firm at umbilicus. Incision covered with gauze dressing. No strikethrough. LABORATORY DATA: Hemoglobin of 8.6, preop hemoglobin of 9.8 and platelet of 310. ASSESSMENT: This is day 1 postop of repeat low transverse section. 1. 10, para 7-0-2-7, multigravida. 2. History of gestational diabetes prior . 3. History of uterine atony, requiring Methergine, prior . 4. History of macrosomic infants. 5. Blood type O positive, antibody screen negative, rubella immune. 6. Obesity. 7. Anemia of , treated with iron twice a day. 8. Bottle feeding. PLAN: Continue routine post section cares. Canales to be removed later this morning. The patient will be following up with Dr. Benz on discharge. Discharge expected to be days 2 postop so she can go see her baby in the NICU. [facility] /[id number] Patient seen and examined, agree with note as scribed on my behalf by Nancy Antunez MS3. -[facility] 03/31/[id number]. SARA
[2018-03-30] MEDS ORDERED: Ondansetron 4 MG/2 ML SDV IV ONE (15:40)
[2018-03-30] MEDS ORDERED: Morphine PF 1 MG/ML Amp ONE (15:40)
[2018-03-30] MEDS ORDERED: Lactated Ringers 1,000 ML IV ONE (15:40)
[2018-03-30] MEDS ORDERED: Dexamethasone 4 MG/ML SDV IV ONE (15:40)
[2018-03-30] MEDS ORDERED: Ketorolac 30 MG/ML SDV IVPUSH ONE (15:40)
[2018-03-30] MEDS ORDERED: Bupivacaine 0.75%/D5W 2 ML Amp INJECT ONE (15:40)
[2018-03-30] MEDS ORDERED: ePHEDrine 50 MG/ML SDV IV ONE (15:40)
[2018-03-30] MEDS ORDERED: Oxytocin/Normal Saline 30 UNIT/500 ML BAG IV ONE (15:42)
[2018-03-30] MEDS: Ibuprofen 800 MG Tab PO PRN (22:33)
[2018-03-31] MEDS: Acetaminophen/oxyCODONE 325-5 MG Tab PO PRN ×5 (01:11→17:57)
[2018-03-31] MEDS: Ferrous Sulfate 325 MG Tab PO SCH ×2 (08:30→17:56)
[2018-03-31] MEDS: Simethicone 80 MG Tab.Chew PO SCH ×3 (08:30→17:56)
[2018-03-31] MEDS: Docusate Sodium 100 MG Cap PO PRN (08:30)
[2018-03-31] MEDS: Ibuprofen 800 MG Tab PO PRN ×2 (08:31→17:56)
[2018-03-31 12:54] VITALS: BP 108/57
--- NOTE | 2018-03-31 21:14 | DISCH ---
ADMITTING DIAGNOSES: 1. Spontaneous rupture of membranes. 2. A 33-year-old, 10, para 7-0-2 -7 at 39 weeks 1 day gestation. 3. History of 3 prior sections. 4. History of gestational diabetes, diet controlled. 5. History of uterine atony, requiring Methergine. 6. Anemia of , treated with iron twice daily. 7. History of macrosomic infants. DISCHARGE DIAGNOSES: 1. Postop repeat low transverse section. 2. 10, para 8-0-2-8, multigravida. 3. History of gestational diabetes, diet controlled. 4. History of uterine atony, requiring Methergine. 5. History of macrosomic . 6. Blood type O positive, antibody screen negative, rubella immune. 7. Anemia of , treated with iron twice daily. 8. Breast-feeding. BRIEF HISTORY: María presented to Labor and Delivery at 39 weeks 1 days gestation with spontaneous rupture of membranes and increasing severity and frequency of contractions. She had a prior consent to a repeat low transverse section with Dr. Foster Benz. This was scheduled for 4 days from the day she presented. Decision made to proceed with repeat low transverse section. Viable female delivered with scores of 9 and 9 and weight of 4615 g, or 10 pound 3 ounces. HOSPITAL COURSE: Mother has been doing well, ambulating within the room, tolerating a normal diet. Mother will be the . Infant was discharged to the NICU at 1 day of life for hypoglycemia management. The patient has been afebrile throughout postop stay. DISCHARGE CONDITION: Good. PHYSICAL EXAMINATION: Vital Signs: Temperature 97.9, pulse 87, blood pressure 117/63, respirations 16 on room air. HEENT: Head is normocephalic and atraumatic. Mucosal membranes are moist. Heart: Regular without murmur. S1 and S2. Regular rate and rhythm. Lungs: Clear to auscultation bilaterally. No wheeze or rhonchi. Abdomen: Soft with uterus firm at umbilicus. Incision site covered with a sterile dressing. LABORATORY: Admission hemoglobin of 9.8; post section, hemoglobin of 8.6 on March 30. Platelets on admission 329, and postop platelets were 310. DISPOSITION: Home with family. MEDICATIONS: 1. Ibuprofen 600 mg every 6 hours as needed for pain. 2. Tylenol 650 mg every 6 hours as needed for pain. 3. Iron 325 mg twice daily. 4. Colace 100 mg twice daily as needed for constipation. 5. Percocet 5/325 mg 1 to 2 every 4-6 hours as needed for pain. 6. vitamin daily. INSTRUCTIONS: The patient will have [address] Foster Benz. She is to be on pelvic rest for those 6 weeks and not lift anything over 20 pounds. Hospital discharge appointment with Dr. Foster Benz on Thursday at 3:00 p.m. This appointment is for baby who may still be in NICU at that time. Dr. Benz will have further instructions on when to have discharge followup for . Routine post section instructions were provided. All of her questions answered. seen and agreed with med student-KERA. [facility] /[id number] SARA
[2018-04-01] MEDS ORDERED: Bisacodyl 10 MG Supp RECTAL ONE (10:00)
== END 2018-03-31 18:05 | disposition home or self-care (01) | DRG 765 ==
LOC: DL.OBCHECK 19:10 → DL.OB 19:42 → OBSVTOIN 20:50
PROVIDERS: ADMIT Family Medicine; ATTEND Family Medicine
PROC: 10D00Z1 Extraction of Products of Conception, Low, Open Approach (ICD-10-PCS; principal; 2018-03-29)
DX: O42.02 Full-term premature rupture of membranes, onset of labor within 24 hours of rupture (principal); Z68.42 Body mass index [BMI] 45.0-49.9, adult; Z3A.39 39 weeks gestation of pregnancy; Z37.0 Single live birth; O34.211 Maternal care for low transverse scar from previous cesarean delivery; O99.214 Obesity complicating childbirth; E66.9 Obesity, unspecified; O77.0 Labor and delivery complicated by meconium in amniotic fluid; O99.013 Anemia complicating pregnancy, third trimester; D64.9 Anemia, unspecified
CPT/HCPCS: 01961; 36415; 82040; 82247; 82248; 82947; 84075; 84155; 84450; 84460; 85025; 85027; 86850; 86900; 86901; 86920; 86922; A9270-GY; J0690; J1100; J1885; J2274; J2405; J2590; J7120

== ENCOUNTER 2018-11-07 17:52 | Emergency (ER) | payer MEDICAID ==
[2018-11-07 18:57] VITALS: BP 125/58
--- NOTE | 2018-11-07 19:41 | EDM.PDOC ---
ED HPI GENERAL MEDICAL PROBLEM - General Chief Complaint: Lower Extremity Injury/Pain Stated Complaint: LEFT ANKLE, FRACTURED Time Seen by Provider: 11/07/18 19:30 Source of Information: Reports: Patient History Limitations: Reports: No Limitations - History of Present Illness INITIAL COMMENTS - FREE TEXT/NARRATIVE: Reports slipped and fell last paloma down 3 steps, . unable to bear weight today pain in left ankle with swelling. taking ibuprofen for pain. No hx of prior injury to ankle.. Denies other injury with fall. No loss of consciousness Left Ankle Pain Score (Numeric/FACES): 8 - Related Data Allergies Allergy/AdvReac Type Severity Reaction Status Date / Time metal Allergy Rash Uncoded 11/07/18 18:57 Home Meds: Home Meds . [No Known Home Meds] 11/07/18 [History] Past Medical History - Past Health History Medical/Surgical History: Denies Medical/Surgical History HEENT History: Reports: Impaired Vision Genitourinary History: Reports: None FILER HELPER History: Reports: , Spontaneous Neurological History: Reports: Seizure, Other (See Below) Other Neuro History: hx seizures, none since 2008 Psychiatric History: Reports: Depression, Other (See Below) Other Psychiatric History: hx overdose and alcohol abuse Endocrine/Metabolic History: Reports: Other (See Below) Other Endocrine/Metabolic History: hx GDM with prior Hematologic History: Reports: Anemia - Past Surgical History Female Surgical History: Reports: Section, D&C, LEEP Social & Family History - Family History Family Medical History: Unobtainable - Tobacco Use Smoking Status *Q: Never Smoker Second Hand Smoke Exposure: No - Caffeine Use Caffeine Use: Reports: Soda - Recreational Drug Use Recreational Drug Use: No - Living Situation & Occupation Living situation: Reports: with Family Occupation: Employed Review of Systems - Review of Systems Review Of Systems: ROS reveals no pertinent complaints other than HPI. ED EXAM, GENERAL - Physical Exam Exam: See Below Exam Limited By: No Limitations General Appearance: Alert, Mild Distress Ears: Normal External Exam, Hearing Grossly Normal Nose: Normal Inspection Throat/Mouth: Normal Inspection Head: Atraumatic, Normocephalic Neck: Normal Inspection Respiratory/Chest: No Respiratory Distress, Lungs Clear Cardiovascular: Normal Peripheral Pulses, Regular Rate, Rhythm Extremities: Joint Swelling (left lateral ankle swoolen lateral fore foot swollen tender to palpation, pain with minimal movment. Pedal pulses intact), Limited Range of Motion. No: Normal Range of Motion Neurological: Alert, Oriented Psychiatric: Normal Affect Skin Exam: Warm, Dry, Intact, Normal Color Course - Vital Signs Last Recorded V/S: Last Vital Signs Temp 98.2 F 11/07/18 18:52 Pulse 86 11/07/18 18:52 Resp 18 11/07/18 18:52 BP 125/58 L 11/07/18 18:52 Pulse Ox 100 11/07/18 18:52 - Orders/Labs/Meds Meds: Medications Discontinued Medications Generic Name Dose Route Start Last Admin Trade Name Freq PRN Reason Stop Dose Admin Ibuprofen 600 mg 11/07/18 20:13 11/07/18 20:26 Motrin PO 11/07/18 20:14 600 mg ONETIME ONE Administration Departure - Departure Time of Disposition: 20:18 Disposition: Home, Self-Care 01 Condition: Good Clinical Impression: Fracture of fibula, distal, closed Qualifiers: Encounter type: initial encounter Fracture morphology: unspecified fracture morphology Laterality: left Qualified Code(s): S82.832A - Other fracture of upper and lower end of left fibula, initial encounter for closed fracture - Discharge Information *PRESCRIPTION DRUG MONITORING PROGRAM REVIEWED*: No *COPY OF PRESCRIPTION DRUG MONITORING REPORT IN PATIENT [place]: No Instructions: Crutch Use, Adult, [id number], Nondisplaced Fibular Ankle Fracture Treated With Immobilization, Adult Referrals: Foster Benz MD [Primary Care Provider] - Forms: ED Department Discharge Additional Instructions: Cam boot non weight bearing with crutches alternate tylenol 650mg and ibuprofen 600mg every 4 hours as needed for discomfort elevate extremity follow up with orthopedics in [phone] call to schedule
[2018-11-07] MEDS ORDERED: Ibuprofen 600 MG Tab PO ONE (20:13)
== END 2018-11-07 20:33 | disposition home or self-care (01) ==
LOC: EEVIPCON 17:52 → DL.ED 17:52
DX: S82.832A Other fracture of upper and lower end of left fibula, initial encounter for closed fracture (principal); Z91.048 Other nonmedicinal substance allergy status; W01.0XXA Fall on same level from slipping, tripping and stumbling without subsequent striking against object, initial encounter
CPT/HCPCS: 73610; 73630; 99283; A9270

== ENCOUNTER 2023-09-09 11:21 | Emergency (ER) | payer MEDICAID ==
[2023-09-09] MEDS ORDERED: Sodium Chloride 0.9% 10 ML Syringe FLUSH PRN (11:32)
[2023-09-09] MEDS ORDERED: methylPREDNISolone Sodium Succinate 125 MG/2 ML SDV IVPUSH ONE (11:33)
[2023-09-09] MEDS ORDERED: Albuterol/Ipratropium 3.0-0.5 MG/3 ML Neb Soln NEB ONE ×2 (11:33→11:59)
[2023-09-09 11:34] VITALS: BP 133/66
[2023-09-09] MEDS ORDERED: Ondansetron 4 MG/2 ML SDV IVPUSH ONE (11:48)
[2023-09-09 11:54] LABS: BASOPHILS PERCENT AUTO 0.3 % (0.0-1.0); EOSINOPHILS PERCENT AUTO 8.2 % (1.0-3.0); HEMATOCRIT 41.6 % (37.0-47.0); HEMOGLOBIN 13.7 g/dL (12.0-16.0); LYMPHOCYTES PERCENT AUTO 19.9 % (20.5-50.1); MEAN CORPUSCULAR HEMOGLOBIN 28.5 pg (27.0-34.0); MEAN CORPUSCULAR HGB CONC 32.9 g/dL (33.0-35.0); MEAN CORPUSCULAR VOLUME 86.7 fL (80-100); MONOCYTES PERCENT AUTO 4.3 % (2-8); NEUTROPHILS PERCENT AUTO 67.3 % (42.2-75.2); PLATELET COUNT,PLT 352 10^3/uL (150-450); WHITE BLOOD CELL COUNT,WBC 12.9 10^3/uL (5.0-10.0)
[2023-09-09 12:11] VITALS: PULSE 78
[2023-09-09 12:22] LABS: CORONAVIRUS COVID-19 NAA NEGATIVE (NEGATIVE); INFLUENZA A NAA NEGATIVE (NEGATIVE); INFLUENZA B NAA NEGATIVE (NEGATIVE); RESPIRATORY SYNCYTIAL VIR NAA NEGATIVE (NEGATIVE)
== END 2023-09-09 12:50 | disposition home or self-care (01) ==
LOC: DL.ED 11:21
DX: J98.8 Other specified respiratory disorders (principal); Z20.822 Contact with and (suspected) exposure to COVID-19; Z91.048 Other nonmedicinal substance allergy status
CPT/HCPCS: 0241U; 36415; 71045; 85025; 94640; 96374; 96375; 99284; 99285-25; J2405; J2930; J3490; J7620-GY